=== PATIENT | male | born 1965 | race Caucasian/White ===

== ENCOUNTER → 2018-05-10 | Outpatient (CLI) | payer BC ==
--- NOTE | 2018-05-10 15:42 | RADIOLOGY REPORT (SQ) ---
EXAM DESCRIPTION: MRI LT LOWER JOINT WITHOUT COMPLETED DATE/TIME: 05/10/2018 9:15 am REASON FOR STUDY: LEFT KNEE PAIN M25.562 M25.562 PAIN IN LEFT KNEE COMPARISON: None. TECHNIQUE: Leftknee images acquired and stored on PACS. Multiplanar images include fat sensitive se quences as T1, water sensitive sequences as FST2 or STIR, cartilage sensitive sequences as FSPD, and gradient echo sequences. LIMITATIONS: None. FINDINGS: JOINT AND BURSAE: Trace fluid. No loose bodies. BONE CORTEX AND MARROW: No alteration of signal to suggest marrow replacement. No worrisome bone lesi ons. No occult fracture. ACL: Intact. No degeneration or ganglion cyst. PCL: Intact. MCL: Intact. No periligamentous edema or fluid. LCL: Intact. No periligamentous edema or fluid. MEDIAL MENISCUS: Predominantly horizontal tear from posterior horn throughout the meniscus body. Pro bable radial component of tear in the anterior body. Slightly extruded appearance. LATERAL MENISCUS: No tears. No abnormal signal. MEDIAL COMPARTMENT: Irregular chondral loss. Probable 9 mm component of full-thickness to near full- thickness focal loss with underlying mild subchondral edema and cysts. LATERAL COMPARTMENT: Cartilage preserved. No bone bruises or reactive marrow edema. No osteophytes. PATELLA: Extensive full-thickness chondral loss in the patellar apex and medial facet. Mild subchond ral edema. EXTENSOR MECHANISM: Quadriceps and patellar tendons are relatively intact. Mild scar in the suprapat ellar fat may reflect impingement. SOFT TISSUES: Small Montanez's cyst. Appropriate vascular flow voids. OTHER: No other significant finding. IMPRESSION: 1. Medial meniscus tear. 2. Chondromalacia patella. Additional chondral loss in the medial compartment. 3. Other findings as above. TECHNICAL DOCUMENTATION: JOB ID: [id number] [employer]- All Rights Reserved Reading location - IP/workstation name: [email or web address]
== END ==
LOC: RAD 08:14
PROVIDERS: ATTEND Orthopaedic Surgery
DX: M25.562 Pain in left knee (principal)